=== PATIENT | female | born 1960 ===

== ENCOUNTER 2021-02-08 09:48 | Emergency (ER) | payer MEDICARE, OTHER ==
--- NOTE | 2021-02-08 10:53 | ED Physician Documentation ---
PD HPI LOWER EXT INJURY - Stated complaint Stated Complaint: RT ANKLE INJ - Chief complaint Chief Complaint: Trauma Ext - History obtained from History obtained from: Patient - History of Present Illness PD HPI LOW EXT INJURY LOCATION: Right, Lower leg, Ankle Type of injury: Twist (She states her right foot slid off wheelchair footrest and struck against wall, with the foot twisting sideways abruptly. Paraplegic so no pain. Noted onset of swelling in ankle today.) Timing - onset: Yesterday Timing - details: Gradual onset Associated symptoms: Swelling (ankle right side) Similar symptoms before: Has not had sx before Review of Systems Skin: denies: Abrasion (s), Laceration (s) PD PAST MEDICAL HISTORY - Past Medical History Neuro: Other (paraplegic from lumbar level) - Allergies Allergies/Adverse Reactions: Allergies Allergy/AdvReac Type Severity Reaction Status Date / Time No Known Drug Allergies Allergy Verified 02/08/21 09:58 PD ED PE NORMAL - Vitals Vital signs reviewed: Yes - General General: Alert and oriented X 3, No acute distress, Well developed/nourished - Derm Derm: Normal color, Warm and dry - Neuro Neuro: Other (atrophy of muscles in legs bilaterally. No sensation nor motor in both legs. Swelling right lower leg/ankle. ) Results - Vitals Vitals: Vital Signs - 24 hr 02/08/21 02/08/21 09:53 13:18 Temperature 36.6 C 36.2 C L Heart Rate 54 L 61 Respiratory 16 16 Rate Blood Pressure 124/84 H 111/69 O2 Saturation 100 100 Oxygen O2 Source Room air - Rads (name of study) right tib/fib Radiology: Prelim report reviewed (spiral fracture nondisplaced, midshaft right tibia. ), See rad report Procedures - Splint (location) right tib/fib Splint applied by: Tech Type of splint: Fiberglass, Long leg, Posterior Other: Patient tolerated well, No complications, Other (she is paraplegic, so no sensation nor motor in legs anyway. Splint applied and will malaika casting. They are from [place] and returning in a week. I think better to keep splint and get casted/ortho followup there, so as to not have problems from swelling with driving, antonette since she does not have sensation.) PD MEDICAL DECISION MAKING - ED course Complexity details: reviewed results (spiral tib/fib fracture nondisplaced. ), considered differential (paraplegia without sensation/motor in legs. She is concerned for fracture, given mechanism. Will get xray tib/fib. ), d/w patient Departure - Departure Disposition: 01 Home, Self Care Clinical Impression: Leg swelling, Paraplegia Nondisplaced spiral fracture of shaft of right tibia Qualifiers: Encounter type: initial encounter Fracture type: closed Qualified Code(s): S82.244A - Nondisplaced spiral fracture of shaft of right tibia, initial encounter for closed fracture Condition: Stable Record reviewed to determine appropriate education?: Yes Instructions: ED Fx Lower Ext Comments: Keep the splint on and in place and clean and dry. Elevate and rest the leg often to reduce swelling. Follow-up with an orthopedist back home next week for reevaluation and change to a cast. Right now the splint is more appropriate in case of increased swelling so it does not create tightness and injury through the tissue of the leg. Continue usual medications. Discharge Date/Time: 02/08/21 13:40
--- NOTE | 2021-02-08 11:57 | XRAY Report ---
PROCEDURE: Tib/Fib RT INDICATIONS: lower leg swelling, twisting injury TECHNIQUE: 2 views of the tibia and fibula were acquired. COMPARISON: None FINDINGS: Bones: There is an comminuted oblique fracture involving the proximal and mid left tibia. Generalized decreased osseous mineralization limits assessment of bony detail. Soft tissues: No suspicious soft tissue calcifications or masses. IMPRESSION: Nondisplaced comminuted fracture of the proximal to mid tibia Advanced osteopenia Reviewed by: Damian Conley MD on 02/08/2021 10:55 AM CEASAR Approved by: Damian Conley MD on 02/08/2021 10:55 AM [email or web address] Station ID: [id number]
--- NOTE | 2021-02-08 12:26 | Ultrasound Report ---
PROCEDURE: Duplex Ext Veins Right INDICATIONS: right lower leg swelling; paraplegic TECHNIQUE: Real-time imaging, as well as color and pulse Doppler interrogation, were performed of the lower extr emity deep veins from the inguinal ligament to the popliteal fossa. COMPARISON: None. FINDINGS: The deep veins are normally compressible, and free of intraluminal thrombus. Color and pu lse Doppler demonstrate normal phasic intraluminal flow. There is normal augmentation response to di stal compression maneuver. It is noted peroneal veins are suboptimally visualized. Soft tissue edema is present. IMPRESSION: Limited exam secondary to edema. No deep venous thrombosis. Reviewed by: Greer Olivia MD on 02/08/2021 12:25 PM PDT Approved by: Greer Olivia MD on 02/08/2021 12:25 PM PDT Station ID: [id number]
[2021-02-08 13:18] VITALS: BP 111/69
== END 2021-02-08 13:40 | disposition home or self-care (01) ==
LOC: ED 09:48
DX: S82.244A Nondisplaced spiral fracture of shaft of right tibia, initial encounter for closed fracture (principal); X50.1XXA Overexertion from prolonged static or awkward postures, initial encounter; G82.20 Paraplegia, unspecified; M85.861 Other specified disorders of bone density and structure, right lower leg
CPT/HCPCS: 29505; 99283